=== PATIENT | male | born 1980 | race Caucasian/White ===

== ENCOUNTER 2020-02-24 17:04 | Emergency (ER) | payer MEDICAID ==
[~2020-02-24] VITALS: Ht 170.2 cm; Wt 109.1 kg
[2020-02-24 17:39] VITALS: Ht 170.2 cm; Wt 109.1 kg
[2020-02-24] MEDS ORDERED: CLEOCIN HCL300 MG PO (18:18)
[2020-02-24 18:25] VITALS: BP 144/62
== END 2020-02-24 18:25 | disposition home or self-care (01) ==
LOC: D.ER 17:04
DX: K02.9 Dental caries, unspecified (principal); K05.10 Chronic gingivitis, plaque induced; S02.5XXA Fracture of tooth (traumatic), initial encounter for closed fracture